=== PATIENT | female | born 1995 | race Caucasian/White ===

== ENCOUNTER 2018-02-13 10:00 | Observation (INO) | payer MEDICAID ==
[~2018-02-13] VITALS: Ht 158 cm; Wt 64.2 kg
[2018-02-13] MEDS ORDERED: RINGERS SOLUTION,LACTATED 1,000 ML IV ONE (10:08)
[2018-02-13] MEDS ORDERED: METOCLOPRAMIDE HCL 5 MG/ML 2 ML VIAL IVP ONE (10:15)
[2018-02-13] MEDS ORDERED: CITRIC ACID/SODIUM CITRATE 30 ML SOLUTION UDCUP PO ONE (10:15)
[2018-02-13 10:24] VITALS: BP 115/70
[2018-02-14] MEDS ORDERED: PREN1TAB80 PO (06:34)
== END 2018-02-13 11:20 | disposition home or self-care (01) ==
LOC: 4S 10:00
PROVIDERS: ADMIT Obstetrics & Gynecology; ATTEND Obstetrics & Gynecology
DX: Z34.83 Encounter for supervision of other normal pregnancy, third trimester (principal); Z3A.39 39 weeks gestation of pregnancy
CPT/HCPCS: 59025; G0378

== ENCOUNTER 2018-02-14 05:00 | Inpatient (IN) | payer MEDICAID ==
[~2018-02-14] VITALS: Ht 157.5 cm; Wt 64.4 kg
[2018-02-14] MEDS ORDERED: RINGERS SOLUTION,LACTATED 1,000 ML IV ONE ×2 (05:19→07:30)
[2018-02-14 05:30] VITALS: BP 119/66
[2018-02-14] MEDS ORDERED: METOCLOPRAMIDE HCL 5 MG/ML 2 ML VIAL IVP ONE (05:30)
[2018-02-14] MEDS ORDERED: CITRIC ACID/SODIUM CITRATE 30 ML SOLUTION UDCUP PO ONE (05:30)
[2018-02-14 05:55] LABS: BASOPHILS % (AUTO) 0.3 % (0.0-2.0); EOSINOPHILS % (AUTO) 1.2 % (1.0-6.0); HEMATOCRIT 31.7 % (36-46); HEMOGLOBIN 10.8 g/dL (12.0-16.0); LYMPHOCYTES # (AUTO) 1.8 K/uL (1.0-4.8); LYMPHOCYTES % (AUTO) 26.1 % (22.0-44.0); MEAN CORPUSCULAR VOLUME 85 fL (80-100); MONOCYTES # (AUTO) 0.5 K/uL (0.1-1.0); MONOCYTES % (AUTO) 6.8 % (2.0-9.0); NEUTROPHILS # (AUTO) 4.6 K/uL (1.8-7.7); NEUTROPHILS % (AUTO) 65.6 % (40.0-70.0); PLATELET COUNT (AUTO)-OB 244 K/uL (150-450); RED BLOOD CELL COUNT(AUTO) 3.71 MIL/uL (4.00-5.20)
[2018-02-14] MEDS ORDERED: BUPIVACAINE HCL/DEX-WATER/PF 0.75% 2 ML AMP ONE (06:30)
[2018-02-14] MEDS ORDERED: FentaNYL CITRATE-PF 100 MCG/2 ML VIAL ONE (06:30)
[2018-02-14] MEDS ORDERED: MORPHINE SULFATE/PF 0.5 MG/ML 10 ML AMP ONE (06:30)
[2018-02-14] MEDS ORDERED: ACETAMINOPHEN 1000 MG/ISO-OSM 100 ML IV ONE (06:31)
[2018-02-14] MEDS ORDERED: PREN1TAB80 PO (06:34)
[2018-02-14] MEDS ORDERED: GUM MASTIC/STORAX/MSAL/ALCOHOL LIQUID 0.67 ML VIAL TP ONE (08:18)
[2018-02-14] MEDS ORDERED: ONDANSETRON HCL 4 MG/2 ML VIAL IVP PRN ×2 (08:30)
[2018-02-14] MEDS ORDERED: DiphenhydrAMINE HCL 50 MG/ML VIAL IVP PRN ×2 (08:30)
[2018-02-14] MEDS ORDERED: NALBUPHINE HCL 10 MG/ML VIAL IVP PRN ×3 (08:30)
[2018-02-14] MEDS ORDERED: FentaNYL CITRATE-PF 100 MCG/2 ML VIAL IVP PRN (08:30)
[2018-02-14] MEDS ORDERED: DEXAMETHASONE SOD PHOS 4 MG/ML VIAL IVP PRN (08:30)
[2018-02-14] MEDS ORDERED: NALOXONE HCL 0.4 MG/ML VIAL IVP PRN (08:30)
[2018-02-14] MEDS ORDERED: MORPHINE SULFATE 10 MG/ML SYRINGE IVP PRN (08:30)
[2018-02-14] MEDS ORDERED: OXYTOCIN 30 UNITS/LACT RINGERS 500 ML IV ONE (09:46)
[2018-02-14] MEDS ORDERED: LANOLIN 7 GM OINTMENT TP PRN (10:00)
[2018-02-14] MEDS ORDERED: OxyCODONE HCL/ACETAMINOPHEN 5-325 MG TABLET PO PRN ×2 (10:00)
[2018-02-14] MEDS: RINGERS SOLUTION,LACTATED 1,000 ML IV SCH ×2 (10:53→19:03)
[2018-02-14] MEDS: ACETAMINOPHEN 1000 MG/ISO-OSM 100 ML IV SCH (16:12)
[2018-02-14] MEDS ORDERED: OXYGEN THERAPY IH SCH ×3 (20:00)
[2018-02-14] MEDS: MAGNESIUM HYDROXIDE SUSPENSION 30 ML UDCUP PO SCH (22:17)
[2018-02-15] MEDS: ACETAMINOPHEN 1000 MG/ISO-OSM 100 ML IV SCH (00:31)
[2018-02-15 05:49] LABS: BASOPHILS % (AUTO) 0.1 % (0.0-2.0); EOSINOPHILS % (AUTO) 0.6 % (1.0-6.0); HEMOGLOBIN 9.9 g/dL (12.0-16.0); LYMPHOCYTES # (AUTO) 1.8 K/uL (1.0-4.8); MEAN CORPUSCULAR HEMOGLOBIN 29.1 pg (26.0-34.0); MEAN CORPUSCULAR HGB CONC 34.3 G/dL (31.0-37.0); MEAN CORPUSCULAR VOLUME 85 fL (80-100); MONOCYTES # (AUTO) 0.7 K/uL (0.1-1.0); MONOCYTES % (AUTO) 7.2 % (2.0-9.0); NEUTROPHILS # (AUTO) 7.1 K/uL (1.8-7.7); NEUTROPHILS % (AUTO) 73.1 % (40.0-70.0); PLATELET COUNT (AUTO)-OB 220 K/uL (150-450); RED BLOOD CELL COUNT(AUTO) 3.41 MIL/uL (4.00-5.20)
[2018-02-15] MEDS ORDERED: 0.9% SODIUM CHLORIDE 10 ML VIAL IVP ONE (06:28)
[2018-02-15] MEDS ORDERED: EPHEDrine SULFATE 50 MG/ML VIAL IM ONE (06:28)
[2018-02-15] MEDS ORDERED: OXYTOCIN 10 UNITS/ML VIAL IM ONE (06:28)
[2018-02-15] MEDS: MAGNESIUM HYDROXIDE SUSPENSION 30 ML UDCUP PO SCH ×2 (08:10→20:44)
[2018-02-15] MEDS: IBUPROFEN 800 MG TABLET PO PRN ×2 (09:31→20:43)
[2018-02-16] MEDS ORDERED: OXYC-38 PO (11:26)
[2018-02-16] MEDS ORDERED: DSS100 PO (11:49)
[2018-02-16] MEDS ORDERED: ACET-784 PO (11:49)
== END 2018-02-16 13:00 | disposition home or self-care (01) | DRG 540 ==
LOC: 4S 05:00 → PREOBSVTOIN 02-28 05:14
PROVIDERS: ADMIT Obstetrics & Gynecology; ATTEND Obstetrics & Gynecology
PROC: 10D00Z1 Extraction of Products of Conception, Low, Open Approach (ICD-10-PCS; principal; 2018-02-14)
PROC: 3E02340 Introduction of Influenza Vaccine into Muscle, Percutaneous Approach (ICD-10-PCS; 2018-02-14)
DX: O82 Encounter for cesarean delivery without indication (principal); Z23 Encounter for immunization; Z37.0 Single live birth; Z3A.40 40 weeks gestation of pregnancy
CPT/HCPCS: 86850; 86900; 86901; 87081; 90686; J0131; J0690; J2274; J2590; J2765; J3010; J3490; J7120

== ENCOUNTER 2024-08-18 03:41 | Emergency (ER) | payer MEDICAID ==
[~2024-08-18] VITALS: Ht 170.2 cm; Wt 67.0 kg
[~2024-08-18 03:41] MED LIST: CEPH-558 PO; IBUP-1506 PO
[2024-08-18 04:09] LABS: APPEARANCE,URINE HAZY (CLEAR); BILIRUBIN,URINE NEGATIVE (NEGATIVE); COLOR,URINE LIGHT YELLOW (YELLOW); GLUCOSE, URINE (UA) NEGATIVE (NEGATIVE); KETONES,URINE NEGATIVE (NEGATIVE); LEUKOCYTE ESTERASE ,URINE LARGE (NEGATIVE); NITRATE,URINE NEGATIVE (NEGATIVE); OCCULT BLOOD,URINE SMALL (NEGATIVE); PH,URINE 5.5 (5.0-8.0); PROTEIN,URINE 30-70 mg/dL (NEGATIVE); SPECIFIC GRAVITIY, URINE 1.017 (1.003-1.030); UROBILINOGEN,URINE <=1.0 mg/dL (<=1.0)
[2024-08-18 04:22] LABS: HCG,QUAL URINE NEGATIVE (NEGATIVE)
[2024-08-18 04:51] LABS: BACTERIA,URINE Moderate /HPF (None Seen); SQUAMOUS EPITHELIAL CELL,UR Few /LPF (None Seen)
[2024-08-18] MEDS ORDERED: PHEN-674 PO (04:52)
[2024-08-18] MEDS ORDERED: CEPH-558 PO (04:52)
[2024-08-18] MEDS ORDERED: ACET-66 PO (04:52)
[2024-08-18 05:00] VITALS: BP 120/85; PULSE 71; RESP 18; TEMP 98.205296; O2SAT 99
[2024-08-18] MEDS: ACETAMINOPHEN 500 MG TABLET PO ONE (05:12)
[2024-08-18] MEDS: ONDANSETRON 4 MG TABLET PO ONE (05:12)
[2024-08-18] MEDS: CEPHALEXIN MONOHYDRATE 500 MG CAPSULE PO ONE (05:12)
[2024-08-18] MEDS: PHENAZOPYRIDINE HCL 100 MG TABLET PO ONE (05:13)
== END 2024-08-18 05:40 | disposition home or self-care (01) ==
LOC: EMS 03:43
DX: N39.0 Urinary tract infection, site not specified (principal); R30.0 Dysuria; M54.9 Dorsalgia, unspecified
CPT/HCPCS: 99284; 81001; 84703; 87077; 87086; Q0162; 87186